=== PATIENT | female | born 1960 | race African-American/Black ===

== ENCOUNTER 2022-02-02 10:50 | Emergency (ER) | payer OTHER ==
[~2022-02-02] VITALS: Ht 177.8 cm; Wt 103.0 kg
[2022-02-02 10:54] VITALS: BP 190/96
[2022-02-02] MEDS ORDERED: ACETAMINOPHEN 325MG TABLET PO ONE (11:15)
== END 2022-02-02 14:05 | disposition home or self-care (01) ==
LOC: ER 10:50
DX: S09.8XXA Other specified injuries of head, initial encounter (principal); W18.39XA Other fall on same level, initial encounter; Y93.89 Activity, other specified; Y92.89 Other specified places as the place of occurrence of the external cause; Y99.8 Other external cause status; F41.9 Anxiety disorder, unspecified; I10 Essential (primary) hypertension
CPT/HCPCS: 70486; 99284